=== PATIENT | male | born 1995 | race Caucasian/White ===

== ENCOUNTER 2020-04-07 16:06 | Emergency (ER) | payer BC ==
[~2020-04-07] VITALS: Ht 175.3 cm; Wt 93.1 kg
[2020-04-07] MEDS ORDERED: RABIES VIRUS VACC PF 2.5 UNIT / 1 ML VIAL. VAX IM ONE (16:45)
--- NOTE | 2020-04-07 16:48 | PHYS DOC ---
General Adult EDM: Chief Complaint: ANIMAL BITE HPI: HPI: 25 year old male presents after bat bite. He was working in a building, when a bat got stuck inside. The patient trapped against the wall and pick that up with his hand. He is unsure if he got bit or scratched by the claw. It went through his latex glove and into his right middle finger. He presents today for rabies prophylaxis. He has never had rabies vaccination in the past. He does not complain of any other symptoms or complaints at this time. Tetanus is 6 years old. Review of Systems: Review of Systems: Constitutional: Denies fever or chills Eyes: Denies change in visual acuity HENT: Denies nasal congestion or sore throat Respiratory: Denies cough or shortness of breath Cardiovascular: Denies chest pain or edema GI: Denies abdominal pain, nausea, vomiting, bloody stools or diarrhea : Denies dysuria Musculoskeletal: Denies back pain or joint pain Integument: Small puncture wound right middle finger Neurologic: Denies headache, focal weakness or sensory changes Endocrine: Denies polyuria or polydipsia Lymphatic: Denies swollen glands Psychiatric: Denies depression or anxiety Heart Score: Risk Factors: Risk Factors: DM, Current or recent (<one month) smoker, HTN, HLP, family history of CAD, obesity. Risk Scores: Score 0 - 3: 2.5% MACE over next 6 weeks - Discharge Home Score 4 - 6: 20.3% MACE over next 6 weeks - Admit for Clinical Observation Score 7 - 10: 72.7% MACE over next 6 weeks - Early Invasive Strategies Allergies: Allergies: Allergies Coded Allergies Type Severity Reaction Last Updated Verified No Known Drug Allergies 04/07/20 No Physical Exam: PE: Constitutional: Well developed, well nourished, no acute distress, non-toxic appearance. [] HENT: Normocephalic, atraumatic, bilateral external ears normal, oropharynx moist, no oral exudates, nose normal. [] Eyes: PERRLA, EOMI, conjunctiva normal, no discharge. [] Neck: Normal range of motion, no tenderness, supple, no stridor. [] Cardiovascular: Heart rate regular rhythm, no murmur [] Lungs & Thorax: Bilateral breath sounds clear to auscultation [] Abdomen: Bowel sounds normal, soft, no tenderness, no masses, no pulsatile masses. [] Skin: Small puncture wound of the right middle finger palmar side. [] Back: No tenderness, no CVA tenderness. [] Extremities: No tenderness, no cyanosis, no clubbing, ROM intact, no edema. [] Neurologic: Alert and oriented X 3, normal motor function, normal sensory function, no focal deficits noted. [] Psychologic: Affect normal, judgement normal, mood normal. [] EKG: EKG: [] Radiology/Procedures: Radiology/Procedures: [] Course & Med Decision Making: Course & Med Decision Making Pertinent Labs and Imaging studies reviewed. (See chart for details) The patient would like to do rabies prophylaxis. We will give him a tetanus shot, rabies vaccine in the deltoid, and rabies immunoglobulin around the wound and the balance and the muscle. The patient tolerated the injections as well as can be expected. Follow-up on days 3 7 and 14 have been explained to the patient. They are set up to be done as an outpatient at our hospital. He is stable for discharge at this time. [] Dragon Disclaimer: Cliff Disclaimer: This electronic medical record was generated, in whole or in part, using a voice recognition dictation system. Departure Departure: Impression: Primary Impression: Bat bite of finger Qualified Codes: S61.259A - Open bite of unspecified finger without damage to nail, initial encounter; W55.81XA - Bitten by other mammals, initial encounter Additional Impression: Need for prophylactic vaccination against rabies Disposition: HOME/RESIDENCE PRIOR TO ADM Condition: STABLE Referrals: PRADEEP AMADOR MD (PCP) Patient Instructions: Rabies Immune Globulin, human RIG solution for injection, Rabies Vaccine suspension for injection Justification of Admission: Justification of Admission: Justification of Admission Dx: N/A JENNIFFER TODD DO Apr 07, 2020 16:48
[2020-04-07 16:49] VITALS: BP 159/81
[2020-04-07] MEDS ORDERED: RABIES IMMUNE GLOBULIN/PF 300 UNIT/ML 5ML VIAL. VAX IM ONE (17:00)
[2020-04-07] MEDS ORDERED: DIPH,PERTUSS(ACELL),TET VAC/PF 0.5 ML SYRINGE. VAX IM ONE (17:15)
== END 2020-04-07 17:50 | disposition home or self-care (01) ==
LOC: ER 16:06
DX: S61.232A Puncture wound without foreign body of right middle finger without damage to nail, initial encounter (principal); W61.91XA Bitten by other birds, initial encounter; Y93.89 Activity, other specified; Y92.89 Other specified places as the place of occurrence of the external cause; Y99.8 Other external cause status
CPT/HCPCS: 90471; 90675; 90715; 96372; 99284